=== PATIENT | female | born 2000 | race American Indian/Alaskan Native ===

== ENCOUNTER 2022-04-17 22:40 | Emergency (ER) | payer SELFPAY ==
[2022-04-18] MEDS ORDERED: Nitrofurantoin Monohydrate/Macrocrystalline 100 MG Cap PO STA
== END 2022-04-18 00:24 | disposition home or self-care (01) ==
LOC: JD.ED 22:40
DX: N30.90 Cystitis, unspecified without hematuria (principal); Z91.040 Latex allergy status; Z86.16 Personal history of COVID-19
CPT/HCPCS: 81001; 81025; 87086; 87088; 87186; 99283; A9270